=== PATIENT | female | born 1995 | race Caucasian/White ===

== ENCOUNTER 2017-07-19 16:42 | Emergency (ER) | payer OTHER ==
[~2017-07-19] VITALS: Ht 165.1 cm; Wt 90.9 kg
[2017-07-19 17:34] VITALS: BP 120/74
[2017-07-19] MEDS ORDERED: RANITIDINE HCL 150 MG TABLET PO ONE (17:45)
[2017-07-19] MEDS ORDERED: PANTOPRAZOLE SODIUM 40 MG DR TABLET PO ONE (17:45)
[2017-07-19] MEDS ORDERED: DONNATAL/LIDOCAINE/MAALOX 55 ML BOTTLE PO ONE (17:45)
== END 2017-07-19 18:13 | disposition home or self-care (01) ==
LOC: EDUNIT# 16:42 → EMS 16:44
DX: K21.9 Gastro-esophageal reflux disease without esophagitis (principal); K29.90 Gastroduodenitis, unspecified, without bleeding; K29.70 Gastritis, unspecified, without bleeding
CPT/HCPCS: 93005; 99284; Z7610